=== PATIENT | female | born 1975 | race Hispanic/Latino ===

== ENCOUNTER 2020-11-15 17:17 | Emergency (ER) | payer SELFPAY ==
[2020-11-15 17:29] VITALS: BP 124/80; PULSE 85; RESP 16; TEMP 36.1; O2SAT 100
--- NOTE | 2020-11-15 17:45 | ED.LOWEXIN ---
HPI - Extremity Injury (Lower) General Chief Complaint: Extremity Injury, Lower Stated Complaint: swollen left leg Time Seen by Provider: 11/15/20 17:45 Source: patient Mode of arrival: ambulatory Limitations: no limitations History of Present Illness HPI Narrative: Vane Seo is a 45 yo female with no PMH who was having left knee pain that she states that she has been seeing a chiropractor for that and is not helping but when asked how long the knee pain is been going on she said 1 week. She has an Brian wrap and she says it does not help but she wants medication for pain and to get the swelling down on her knee Related Data Home Medications Medication Instructions Recorded Confirmed ibuprofen 11/15/20 Allergies Allergy/AdvReac Type Severity Reaction Status Date / Time No Known Allergies Allergy Unverified 11/15/20 17:31 Review of Systems Review of Systems: CONSTITUTIONAL: Denies fever, chills, sweats. EYES: Denies visual changes, redness, discharge. ENT: Denies rhinorrhea, congestion, sore throat, otalgia. CARDIOVASCULAR: Denies chest pain, palpitations, edema. RESPIRATORY: Denies dyspnea, wheezing, cough GASTROINTESTINAL: Denies abdominal pain, nausea, vomiting, diarrhea. GENITOURINARY: Denies dysuria, hematuria, abnormal discharge SKIN: Denies rash or itching. NEUROLOGIC: Denies numbness, or focal weakness. PSYCHIATRIC: Denies anxiety or depression. Left medial knee pain PMFSH Past Medical History Medical History No acute medical problems Family History Family History Other No acute medical problems Social History Social History Smoking status: Never smoker Alcohol intake: current Comments At time of signature, I agree with nursing past medical, surgical, social and family history. There is no relevant family history pertinent to the presenting complaint. Exam Narrative: GENERAL: This is a well-nourished, well-developed patient, in mild distress. HEAD: normocephalic, atraumatic. EYES: . Sclera clear/white. Vision is grossly intact. EARS: External ears normal,. Hearing grossly intact. NOSE: External nose normal without nasal discharge, nares without redness, no rhinorrhea. THROAT: Mucous membranes moist, NECK: Neck supple, CARDIOVASCULAR: Regular rate and rhythm without murmurs, gallops, or rubs. RESPIRATORY: Clear to auscultation. Breath sounds equal bilaterally. No wheezes, rales, or rhonchi. GASTROINTESTINAL: Abdomen soft,, SKIN: warm, intact with no suspicious lesions or rash, good texture and turgor. NEURO: awake, alert, and oriented to person, place and time. There were no obvious focal neurologic abnormalities. Steady gait EXTREMITIES: Normal range of motion. Is able to squat with pain in the left side and can bear weight she states that the pain is mostly with bending and is also on the medial side heading towards the posterior side of the knee, minimal swelling to knee- tender on medial side BACK: Nontender without deformity Course Course Emergency Course: Patient here for left knee pain that she said started a little over a week ago and has had chiropractic treatment in the past. Patient already had a knee x-ray she is asking for something to reduce the swelling and for the pain; states that Tylenol and ibuprofen have not helped Started on rice, told her to keep the knee wrapped our Brian wrap on leg during the day and elevated at night, use ice and compression for pain, ibuprofen 400 mg every 4 hours pain and may take tramadol at night for pain Vital Signs Vital signs: Vital Signs Temperature 97.0 F L 11/15/20 17:29 Pulse Rate 85 11/15/20 17:29 Respiratory Rate 16 11/15/20 17:29 Blood Pressure 124/80 11/15/20 17:29 Pulse Oximetry 100 11/15/20 17:29 Temperature 97.0 F L 11/15/20 17:29
== END 2020-11-15 18:05 | disposition home or self-care (01) ==
PROVIDERS: Emergency Provider Nurse Practitioner
DX: M25.562 Pain in left knee (principal); Z79.1 Long term (current) use of non-steroidal anti-inflammatories (NSAID)
CPT/HCPCS: 99213; G0463